=== PATIENT | female | born 1960 | race Caucasian/White ===

== ENCOUNTER 2017-06-12 10:55 | Emergency (ER) | payer MEDICARE ==
[2017-06-12] MEDS ORDERED: Sodium Chloride 0.9% 10 ML Syringe FLUSH PRN (11:29)
[2017-06-12] MEDS ORDERED: Pantoprazole 80 MG in Sodium Chloride 0.9% 100 ML IV ONE (11:40)
--- NOTE | 2017-06-12 11:44 | EDM.PDOC ---
ED HPI GENERAL MEDICAL PROBLEM - General Chief Complaint: Gastrointestinal Problem Stated Complaint: [facility] Time Seen by Provider: 06/12/17 11:32 Source of Information: Reports: Long Term Records History Limitations: Reports: Altered Mental Status - History of Present Illness INITIAL COMMENTS - FREE TEXT/NARRATIVE: Patient is a 56-year-old female with a history of end-stage liver disease who presents ED with complaints of nausea/vomiting, abdominal pain, and increased confusion. Patient resides at a local [facility]. Per staff patient's confusion has been increasing thus prompting evaluation in ED. Per nursing staff patient's had no recent fall. She is full CODE STATUS. Per nursing notes patient has a history of CVA, depression, kidney disease, iron deficiency, type 2 diabetes, COPD, anxiety, he will please unknown site, hypertension, weakness, and edema. - Related Data Allergies Allergy/AdvReac Type Severity Reaction Status Date / Time doxycycline Allergy Cannot Verified 06/12/17 11:12 Remember levofloxacin Allergy Cannot Verified 06/12/17 11:12 Remember morphine Allergy Cannot Verified 06/12/17 11:12 Remember spironolactone Allergy Cannot Verified 06/12/17 11:12 Remember Home Meds: Home Meds Aspirin [Ecotrin] 81 mg PO DAILY 06/12/17 [History] Carvedilol 3.125 mg PO BID 06/12/17 [History] Ipratropium/Albuterol Sulfate [Iprat-Albut 0.5-3(2.5) MG/3 ML] 3 ml INH DAILY PRN 06/12/17 [History] LORazepam [Ativan] 0.5 mg PO DAILY 06/12/17 [History] aMILoride [Midamor] 15 mg PO DAILY 06/12/17 [History] ED ROS GENERAL - Review of Systems Review Of Systems: Unable To Obtain - Physical Exam Exam: See Below Exam Limited By: Altered Mental Status General Appearance: Alert, Lethargic, Mild Distress Eye Exam: Bilateral Eye: EOMI, Normal Inspection, PERRL Nose: Normal Inspection Throat/Mouth: Normal Oropharynx, No Airway Compromise Head Exam: Atraumatic, Normocephalic Neck: Normal Inspection Respiratory/Chest: No Respiratory Distress, Lungs Clear, Normal Breath Sounds, Chest Non-Tender Cardiovascular: Normal Peripheral Pulses, No Murmur (Obvious), Tachycardia GI/Abdominal: Soft, Distended, Tender (Throughout with palpation), Other ( positive fluid wave. ) Neuro Exam (Abbreviated): Alert, CN II-XII Intact, Confused, Slow to Respond. No: Oriented, Normal Cognition Extremities: Normal Inspection, Non-Tender, No Pedal Edema, Normal Capillary Refill Skin Exam: Warm, Dry, Intact. No: Normal Color (pale) Course - Vital Signs Last Recorded V/S: Last Vital Signs Temp 96.9 F 06/12/17 15:10 Pulse 110 H 06/12/17 15:10 Resp 24 H 06/12/17 15:10 BP 93/55 L 06/12/17 15:10 Pulse Ox 100 06/12/17 15:10 - Orders/Labs/Meds Orders: Active Orders 24 hr Category Date Time Status EKG Documentation Completion [RC] STAT Care 06/12/17 11:29 Active Peripheral IV Care [RC] . DIRECTED Care 06/12/17 11:30 Active CULTURE BLOOD [BC] Stat Lab 06/12/17 11:55 Received CULTURE BLOOD [BC] Stat Lab 06/12/17 12:10 Received Blood Culture x2 Reflex Set [OM.PC] Stat Ot 06/12/17 11:35 Ordered Peripheral IV Insertion Adult [OM.PC] Stat Oth 06/12/17 11:29 Ordered Peripheral IV Insertion Adult [OM.PC] Stat Ot 06/12/17 11:30 Ordered Transfuse Red Blood Cells [COMM] Stat Ot 06/12/17 12:09 Ordered Labs: Laboratory Tests 06/12/17 06/12/17 06/12/17 Range/Units 11:05 11:08 11:35 WBC (3.98-10.04) K/mm3 RBC (3.98-5.22) M/mm3 Hgb (11.2-15.7) gm/L Hct (34.1-44.9) % MCV (79.4-94.8) fl MCH (25.6-32.2) pg MCHC (32.2-35.5) g/dl RDW Std Deviation (36.4-46.3) fL Plt Count (182-369) K/mm3 MPV (9.4-12.3) fl Neut % (Auto) (34.0-71.1) % Lymph % (Auto) (19.3-51.7) % [place] % (Auto) (4.7-12.5) % Eos % (Auto) (0.7-5.8) Baso % (Auto) (0.1-1.2) % Neut # (Auto) (1.56-6.13) K/mm3 Lymph # (Auto) (1.18-3.74) K/mm3 [place] # (Auto) (0.24-0.36) K/mm3 Eos # (Auto) (0.04-0.36) K/mm3 Baso # (Auto) (0.01-0.08) K/mm3 Manual Slide Review PT (8.0-13.0) SECONDS INR APTT (22-36) SECONDS Sodium (136-145) mEq/L Potassium (3.5-5.1) mEq/L Chloride (98-107) mEq/L Carbon Dioxide (21-32) mEq/L Anion Gap (5-15) BUN (7-18) mg/dL Creatinine (0.55-1.02) mg/dL Est Cr Clr Drug Dosing Estimated GFR (MDRD) (>60) mL/min BUN/Creatinine Ratio (14-18) Glucose (74-106) mg/dL Lactic Acid (0.4-2.0) mmol/L Calcium (8.5-10.1) mg/dL Total Bilirubin (0.2-1.0) mg/dL AST (15-37) U/L ALT (14-59) U/L Alkaline Phosphatase (46-116) U/L Ammonia (11-32) umol/L Troponin I (0.00-0.056) ng/mL C-Reactive Protein (<1.0) mg/dL Total Protein (6.4-8.2) g/dl Albumin (3.4-5.0) g/dl Globulin gm/dL Albumin/Globulin Ratio (1-2) Lipase (73-393) U/L TSH 3rd Generation (0.358-3.74) uIU/mL Urine Color Yellow (Yellow) Urine Appearance Clear (Clear) Urine pH 6.0 (5.0-8.0) Ur Specific [place] 1.015 (1.005-1.030) Urine Protein Negative (Negative) Urine Glucose (UA) Negative (Negative) Urine Ketones Negative (Negative) Urine Occult Blood Negative (Negative) Urine Nitrite Negative (Negative) Urine Bilirubin Negative (Negative) Urine Urobilinogen 1.0 (0.2-1.0) Ur Leukocyte Esterase Negative (Negative) Urine RBC Not seen (0-5) /hpf Urine WBC 0-5 (0-5) /hpf Ur Epithelial Cells 0-5 (0-5) /hpf Urine Bacteria Few (FEW) /hpf Urine Mucus Not seen (FEW) /hpf Urine Opiates Screen Negative (NEGATIVE) Ur Buprenorphine Scrn Negative (NEGATIVE) Ur Oxycodone Screen Negative (NEGATIVE) Urine Methadone Screen Negative (NEGATIVE) Ur Propoxyphene Screen Negative (NEGATIVE) Ur Barbiturates Screen Negative (NEGATIVE) Ur Tricyclics Screen Negative (NEGATIVE) Ur Phencyclidine Scrn Negative (NEGATIVE) Ur Amphetamine Screen Negative (NEGATIVE) U Methamphetamines Scrn Negative (NEGATIVE) U Benzodiazepines Scrn Presumptive positive H (NEGATIVE) U Cocaine Metab Screen Negative (NEGATIVE) U Marijuana (THC) Screen Negative (NEGATIVE) Blood Type B POSITIVE Gel Antibody Screen Negative Crossmatch See Detail 06/12/17 06/12/17 06/12/17 Range/Units 11:55 11:55 11:55 WBC 13.84 H (3.98-10.04) K/mm3 RBC 1.51 L (3.98-5.22) M/mm3 Hgb 4.1 L* (11.2-15.7) gm/L Hct 15.0 L (34.1-44.9) % MCV 99.3 H (79.4-94.8) fl MCH 27.2 (25.6-32.2) pg MCHC 27.3 L (32.2-35.5) g/dl RDW Std Deviation 59.8 H (36.4-46.3) fL Plt Count 360 (182-369) K/mm3 MPV 10.5 (9.4-12.3) fl Neut % (Auto) 79.9 H (34.0-71.1) % Lymph % (Auto) 11.7 L (19.3-51.7) % [place] % (Auto) 7.2 (4.7-12.5) % Eos % (Auto) 0.4 L (0.7-5.8) Baso % (Auto) 0.6 (0.1-1.2) % Neut # (Auto) 11.05 H (1.56-6.13) K/mm3 Lymph # (Auto) 1.62 (1.18-3.74) K/mm3 [place] # (Auto) 1.00 H (0.24-0.36) K/mm3 Eos # (Auto) 0.06 (0.04-0.36) K/mm3 Baso # (Auto) 0.08 (0.01-0.08) K/mm3 Manual Slide Review Abnormal smear PT 13.0 (8.0-13.0) SECONDS INR 1.18 APTT (22-36) SECONDS Sodium 140 (136-145) mEq/L Potassium 4.1 (3.5-5.1) mEq/L Chloride 102 (98-107) mEq/L Carbon Dioxide 31 (21-32) mEq/L Anion Gap 11.1 (5-15) BUN 38 H (7-18) mg/dL Creatinine 1.4 H (0.55-1.02) mg/dL Est Cr Clr Drug Dosing TNP Estimated GFR (MDRD) 39 (>60) mL/min BUN/Creatinine Ratio 27.1 H (14-18) Glucose 150 H (74-106) mg/dL Lactic Acid (0.4-2.0) mmol/L Calcium 8.7 (8.5-10.1) mg/dL Total Bilirubin 0.5 (0.2-1.0) mg/dL AST 38 H (15-37) U/L ALT 30 (14-59) U/L Alkaline Phosphatase 88 (46-116) U/L Ammonia (11-32) umol/L Troponin I (0.00-0.056) ng/mL C-Reactive Protein 1.0 (<1.0) mg/dL Total Protein 5.9 L (6.4-8.2) g/dl Albumin 2.1 L (3.4-5.0) g/dl Globulin 3.8 gm/dL Albumin/Globulin Ratio 0.6 L (1-2) Lipase 320 (73-393) U/L TSH 3rd Generation 2.894 (0.358-3.74) uIU/mL Urine Color (Yellow) Urine Appearance (Clear) Urine pH (5.0-8.0) Ur Specific [place] (1.005-1.030) Urine Protein (Negative) Urine Glucose (UA) (Negative) Urine Ketones (Negative) Urine Occult Blood (Negative) Urine Nitrite (Negative) Urine Bilirubin (Negative) Urine Urobilinogen (0.2-1.0) Ur Leukocyte Esterase (Negative) Urine RBC (0-5) /hpf Urine WBC (0-5) /hpf Ur Epithelial Cells (0-5) /hpf Urine Bacteria (FEW) /hpf Urine Mucus (FEW) /hpf Urine Opiates Screen (NEGATIVE) Ur Buprenorphine Scrn (NEGATIVE) Ur Oxycodone Screen (NEGATIVE) Urine Methadone Screen (NEGATIVE) Ur Propoxyphene Screen (NEGATIVE) Ur Barbiturates Screen (NEGATIVE) Ur Tricyclics Screen (NEGATIVE) Ur Phencyclidine Scrn (NEGATIVE) Ur Amphetamine Screen (NEGATIVE) U Methamphetamines Scrn (NEGATIVE) U Benzodiazepines Scrn (NEGATIVE) U Cocaine Metab Screen (NEGATIVE) U Marijuana (THC) Screen (NEGATIVE) Blood Type Gel Antibody Screen Crossmatch 06/12/17 06/12/17 06/12/17 Range/Units 11:55 11:55 12:10 WBC (3.98-10.04) K/mm3 RBC (3.98-5.22) M/mm3 Hgb (11.2-15.7) gm/L Hct (34.1-44.9) % MCV (79.4-94.8) fl MCH (25.6-32.2) pg MCHC (32.2-35.5) g/dl RDW Std Deviation (36.4-46.3) fL Plt Count (182-369) K/mm3 MPV (9.4-12.3) fl Neut % (Auto) (34.0-71.1) % Lymph % (Auto) (19.3-51.7) % [place] % (Auto) (4.7-12.5) % Eos % (Auto) (0.7-5.8) Baso % (Auto) (0.1-1.2) % Neut # (Auto) (1.56-6.13) K/mm3 Lymph # (Auto) (1.18-3.74) K/mm3 [place] # (Auto) (0.24-0.36) K/mm3 Eos # (Auto) (0.04-0.36) K/mm3 Baso # (Auto) (0.01-0.08) K/mm3 Manual Slide Review PT (8.0-13.0) SECONDS INR APTT 23 (22-36) SECONDS Sodium (136-145) mEq/L Potassium (3.5-5.1) mEq/L Chloride (98-107) mEq/L Carbon Dioxide (21-32) mEq/L Anion Gap (5-15) BUN (7-18) mg/dL Creatinine (0.55-1.02) mg/dL Est Cr Clr Drug Dosing Estimated GFR (MDRD) (>60) mL/min BUN/Creatinine Ratio (14-18) Glucose (74-106) mg/dL Lactic Acid (0.4-2.0) mmol/L Calcium (8.5-10.1) mg/dL Total Bilirubin (0.2-1.0) mg/dL AST (15-37) U/L ALT (14-59) U/L Alkaline Phosphatase (46-116) U/L Ammonia 157 H (11-32) umol/L Troponin I < 0.017 (0.00-0.056) ng/mL C-Reactive Protein (<1.0) mg/dL Total Protein (6.4-8.2) g/dl Albumin (3.4-5.0) g/dl Globulin gm/dL Albumin/Globulin Ratio (1-2) Lipase (73-393) U/L TSH 3rd Generation (0.358-3.74) uIU/mL Urine Color (Yellow) Urine Appearance (Clear) Urine pH (5.0-8.0) Ur Specific [place] (1.005-1.030) Urine Protein (Negative) Urine Glucose (UA) (Negative) Urine Ketones (Negative) Urine Occult Blood (Negative) Urine Nitrite (Negative) Urine Bilirubin (Negative) Urine Urobilinogen (0.2-1.0) Ur Leukocyte Esterase (Negative) Urine RBC (0-5) /hpf Urine WBC (0-5) /hpf Ur Epithelial Cells (0-5) /hpf Urine Bacteria (FEW) /hpf Urine Mucus (FEW) /hpf Urine Opiates Screen (NEGATIVE) Ur Buprenorphine Scrn (NEGATIVE) Ur Oxycodone Screen (NEGATIVE) Urine Methadone Screen (NEGATIVE) Ur Propoxyphene Screen (NEGATIVE) Ur Barbiturates Screen (NEGATIVE) Ur Tricyclics Screen (NEGATIVE) Ur Phencyclidine Scrn (NEGATIVE) Ur Amphetamine Screen (NEGATIVE) U Methamphetamines Scrn (NEGATIVE) U Benzodiazepines Scrn (NEGATIVE) U Cocaine Metab Screen (NEGATIVE) U Marijuana (THC) Screen (NEGATIVE) Blood Type Gel Antibody Screen Crossmatch 06/12/17 Range/Units 12:10 WBC (3.98-10.04) K/mm3 RBC (3.98-5.22) M/mm3 Hgb (11.2-15.7) gm/L Hct (34.1-44.9) % MCV (79.4-94.8) fl MCH (25.6-32.2) pg MCHC (32.2-35.5) g/dl RDW Std Deviation (36.4-46.3) fL Plt Count (182-369) K/mm3 MPV (9.4-12.3) fl Neut % (Auto) (34.0-71.1) % Lymph % (Auto) (19.3-51.7) % [place] % (Auto) (4.7-12.5) % Eos % (Auto) (0.7-5.8) Baso % (Auto) (0.1-1.2) % Neut # (Auto) (1.56-6.13) K/mm3 Lymph # (Auto) (1.18-3.74) K/mm3 [place] # (Auto) (0.24-0.36) K/mm3 Eos # (Auto) (0.04-0.36) K/mm3 Baso # (Auto) (0.01-0.08) K/mm3 Manual Slide Review PT (8.0-13.0) SECONDS INR APTT (22-36) SECONDS Sodium (136-145) mEq/L Potassium (3.5-5.1) mEq/L Chloride (98-107) mEq/L Carbon Dioxide (21-32) mEq/L Anion Gap (5-15) BUN (7-18) mg/dL Creatinine (0.55-1.02) mg/dL Est Cr Clr Drug Dosing Estimated GFR (MDRD) (>60) mL/min BUN/Creatinine Ratio (14-18) Glucose (74-106) mg/dL Lactic Acid 3.5 H (0.4-2.0) mmol/L Calcium (8.5-10.1) mg/dL Total Bilirubin (0.2-1.0) mg/dL AST (15-37) U/L ALT (14-59) U/L Alkaline Phosphatase (46-116) U/L Ammonia (11-32) umol/L Troponin I (0.00-0.056) ng/mL C-Reactive Protein (<1.0) mg/dL Total Protein (6.4-8.2) g/dl Albumin (3.4-5.0) g/dl Globulin gm/dL Albumin/Globulin Ratio (1-2) Lipase (73-393) U/L TSH 3rd Generation (0.358-3.74) uIU/mL Urine Color (Yellow) Urine Appearance (Clear) Urine pH (5.0-8.0) Ur Specific [place] (1.005-1.030) Urine Protein (Negative) Urine Glucose (UA) (Negative) Urine Ketones (Negative) Urine Occult Blood (Negative) Urine Nitrite (Negative) Urine Bilirubin (Negative) Urine Urobilinogen (0.2-1.0) Ur Leukocyte Esterase (Negative) Urine RBC (0-5) /hpf Urine WBC (0-5) /hpf Ur Epithelial Cells (0-5) /hpf Urine Bacteria (FEW) /hpf Urine Mucus (FEW) /hpf Urine Opiates Screen (NEGATIVE) Ur Buprenorphine Scrn (NEGATIVE) Ur Oxycodone Screen (NEGATIVE) Urine Methadone Screen (NEGATIVE) Ur Propoxyphene Screen (NEGATIVE) Ur Barbiturates Screen (NEGATIVE) Ur Tricyclics Screen (NEGATIVE) Ur Phencyclidine Scrn (NEGATIVE) Ur Amphetamine Screen (NEGATIVE) U Methamphetamines Scrn (NEGATIVE) U Benzodiazepines Scrn (NEGATIVE) U Cocaine Metab Screen (NEGATIVE) U Marijuana (THC) Screen (NEGATIVE) Blood Type Gel Antibody Screen Crossmatch Meds: Medications Discontinued Medications Generic Name Dose Route Start Last Admin Trade Name Freq PRN Reason Stop Dose Admin Pantoprazole Sodium 80 mg/ 100 mls @ 10 mls/hr 06/12/17 11:40 06/12/17 12:44 Sodium Chloride IV 06/12/17 21:39 8 mg/hr ONETIME ONE 10 mls/hr 8 MG/HR Administration Sodium Chloride Confirm 06/12/17 13:25 06/12/17 14:04 Normal Saline Administered 06/12/17 13:26 Not Given Dose 250 mls @ as directed .ROUTE .STK-MED ONE Piperacillin Sod/Tazobactam 100 mls @ 200 mls/hr 06/12/17 13:49 06/12/17 14: 28 Sod 3.375 gm/ Sodium Chloride IV 06/12/17 14:18 200 mls/hr ONETIME ONE Administration Lorazepam 0.25 mg 06/12/17 11:56 06/12/17 12:03 Ativan IVPUSH 06/12/17 11:57 0.25 mg ONETIME ONE Administration Octreotide Acetate 50 mcg 06/12/17 13:44 06/12/17 14:31 Sandostatin SUBCUT 06/12/17 13:45 50 mcg ONETIME ONE Administration Ondansetron HCl 4 mg 06/12/17 11:46 06/12/17 11:59 Zofran IVPUSH 06/12/17 11:47 4 mg ONETIME ONE Administration Sodium Chloride 10 ml 06/12/17 11:29 06/12/17 11:59 Saline Flush FLUSH 10 ml ASDIRECTED PRN Administration Keep Vein Open - Re-Assessments/Exams Free Text/Narrative Re-Assessment/Exam: IV established. Initial labs and studies include: EKG, CBC, chem 14, blood cultures 2, coag studies, CRP, lactic acid, lipase, troponin, Type and screen, TSH, UA, and ammonia level. Also ordered a chest x-ray with abdominal series. Head CT without contrast. Per nursing staff patient stool was positive for blood. IV Protonix ordered. Zofran ordered. Rapid bedside glucose ordered as well. EKG revealed: Sinus tachycardia at a rate of 113. Q waves in leads 2, 3, and aVF. Left atrial hypertrophy. Decreased voltage precordial leads. 06/12/17 11:[address] Vásquez. He did see the patient as well suggested low dose ativan0.25mgIVP to settle her down. Agrees with plan. 06/12/17 12:10 HGB read back at 4.1. Ordered two PRBCS to be transfused. Once labs completed will arrange transport to [place]. Chest x-ray revealed: No acute findings noted. Reviewed with Dr. Vásquez. Final interpretation pending. Abdominal x-rays reveal:No acute findings noted. Reviewed with Dr. Vásquez. Final interpretation pending. Head CT revealed: No acute findings noted. Reviewed with Dr. Vásquez. Final interpretation pending. Labs reviewed: White blood cell count 13.84, hemoglobin 4.1, platelet count 360 , INR 1.18, creatinine 1.4, glucose 150, lactic acid 3.5, ammonia level is 157, lipase 320, TSH 2.894, UA negative for infection. Troponin WNL. Urine drug tox not ordered in error. Ordered and pending. 1314 Called [facility] one call they will call back. Patients PCP is Dr. Ferreira. Unable to get ahold of family for transfer requests in relation to hospital. 06/12/17 13:48 [facility] has called back[address] Dr. Huizar requested zosyn and octreotide. Ordered 50mcq SQ x1 and zosyn 3.375 IV. Inaddition the accepting ED provider Dr. De Paz requested lactulose. WE have discussed starting this prior to contacting [facility]. Patient is unable to safely drink lactulose. I do not believe she would take it via enema. Spoke with Dr. Vásquez and he agrees with plan. They will have to place NG tube in [place] and provide it that way. Amulance has been notified. 06/12/17 14:08 Urine drug tox positive for benzo's. Spoke with Dr. De Paz directly. Advised patient is unable to swallow lactulose and do not believe she would tolerate retention enema. Contacted pharmacy and they do not have rectal lactulose. Thus patient will be transported via ambulance without. All transfer paperwork completed. Departure - Departure Time of Disposition: 13:14 Disposition: DC/Tfer to [facility] 02 Condition: Poor Clinical Impression: Hepatic encephalopathy GI (gastrointestinal bleed) Qualifiers: GI bleed type/associated pathology: unspecified gastrointestinal hemorrhage type Qualified Code(s): K92.2 - Gastrointestinal hemorrhage, unspecified Cirrhosis of liver Qualifiers: Hepatic cirrhosis type: alcoholic cirrhosis Ascites presence: with ascites Qualified Code(s): K70.31 - Alcoholic cirrhosis of liver with ascites Anemia Qualifiers: Anemia type: unspecified type Qualified Code(s): D64.9 - Anemia, unspecified - Discharge Information Referrals: Leonard Pettit MD [Primary Care Provider] - Forms: ED Department Discharge - My Orders Last 24 Hours: My Active Orders 06/12/17 11:29 EKG Documentation Completion [RC] STAT Peripheral IV Insertion Adult [OM.PC] Stat 06/12/17 11:30 Peripheral IV Care [RC] . DIRECTED Peripheral IV Insertion Adult [OM.PC] Stat 06/12/17 11:35 Blood Culture x2 Reflex Set [OM.PC] Stat 06/12/17 11:55 CULTURE BLOOD [BC] Stat 06/12/17 12:09 Transfuse Red Blood Cells [COMM] Stat 06/12/17 12:10 CULTURE BLOOD [BC] Stat - Assessment/Plan Last 24 Hours: My Active Orders 06/12/17 11:29 EKG Documentation Completion [RC] STAT Peripheral IV Insertion Adult [OM.PC] Stat 06/12/17 11:30 Peripheral IV Care [RC] . DIRECTED Peripheral IV Insertion Adult [OM.PC] Stat 06/12/17 11:35 Blood Culture x2 Reflex Set [OM.PC] Stat 06/12/17 11:55 CULTURE BLOOD [BC] Stat 06/12/17 12:09 Transfuse Red Blood Cells [COMM] Stat 06/12/17 12:10 CULTURE BLOOD [BC] Stat
[2017-06-12] MEDS ORDERED: Ondansetron 4 MG/2 ML SDV IVPUSH ONE (11:46)
[2017-06-12] MEDS ORDERED: LORazepam 2 MG/ML MDV IVPUSH ONE (11:56)
--- NOTE | 2017-06-12 12:58 | CT ---
Head CT Technique: Multiple axial sections through the brain were obtained. Intravenous contrast was not utilized. Comparison: No prior studies available. Findings: Low density is noted within the at the left parietal-occipital junction. This is felt compatible with an old infarct. Several areas of slight increased density is noted within the cortex in this region which may represent minimal amount of cortical blood versus small cortical calcifications. Ventricles along with basal cisterns and sulci over the convexities are moderately prominent. No other abnormal parenchymal densities are seen. No other findings of intracranial hemorrhage. No midline shift is seen. Bone window settings were reviewed which shows no acute calvarial abnormality. Visualized sinuses are clear. Impression: 1. Generalized atrophy. 2. Findings felt compatible with old infarct at the left parietal-occipital junction. 3. Several minimal areas of increased density within the cortex in the area of the previous infarct either due to very minimal cortical hemorrhage or calcification. 4. Nothing acute is otherwise seen on noncontrast head CT study. Diagnostic code #3
[2017-06-12] MEDS ORDERED: Sodium Chloride 0.9% 250 ML ONE (13:25)
[2017-06-12] MEDS ORDERED: Octreotide 50 MCG/1 ML Amp SUBCUT ONE (13:44)
[2017-06-12] MEDS ORDERED: Piperacillin/Tazobactam 3.375 GM in Sodium Chloride 0.9% 100 ML IV ONE (13:49)
--- NOTE | 2017-06-12 14:44 | CR ---
Abdominal series: Supine view of the chest is obtained as well as supine view of the abdomen and decubitus views of the abdomen. Comparison: No previous study. Heart size and mediastinum are within normal limits for supine technique. Lungs are clear. Surgical clips are seen within the left neck. Bowel gas pattern appears normal. Vascular calcification is seen. No free air is identified on the decubitus views. Impression: 1. Incidental findings. Nothing acute is seen on abdominal series. Diagnostic code #2
== END 2017-06-12 15:10 ==
LOC: JD.ED 10:55
DX: K70.31 Alcoholic cirrhosis of liver with ascites (principal); K72.90 Hepatic failure, unspecified without coma; K92.2 Gastrointestinal hemorrhage, unspecified; D64.9 Anemia, unspecified; Z88.1 Allergy status to other antibiotic agents; Z88.5 Allergy status to narcotic agent; Z88.8 Allergy status to other drugs, medicaments and biological substances; Z79.82 Long term (current) use of aspirin; Z79.899 Other long term (current) drug therapy
CPT/HCPCS: 36415; 70450; 74022; 80053; 80306; 81001; 82140; 83605; 83690; 84443; 84484; 85025; 85610; 85730; 86140; 86850; 86900; 86901; 86922; 87040; 93005; 96365; 96366; 96368; 96372; 96375; 99285; C9113; J2060; J2354; J2405; J2543; J7030; J7050; P9016; P9612

== ENCOUNTER 2017-08-05 06:52 | Emergency (ER) | payer MEDICAID ==
--- NOTE | 2017-08-05 07:28 | EDM.PDOC ---
ED HPI GENERAL MEDICAL PROBLEM - General Chief Complaint: ENT Problem Stated Complaint: [facility] Time Seen by Provider: 08/05/17 07:05 Source of Information: Reports: Patient, Jail Records History Limitations: Reports: No Limitations - History of Present Illness INITIAL COMMENTS - FREE TEXT/NARRATIVE: Medical records from the alf indicate that the patient called out that she had a right-sided nosebleed at 03:29 this morning. The bleeding stopped after the patient's nostril was packed with gauze and pressure was applied for 15 minutes. The right nostril apparently began bleeding again sometime later - the patient is not able to tell me when. It had stopped by the time the patient arrived at the ED. The patient's states that it stopped with gauze packing alone , without pressure. I'm told that the patient spit out a sizable blood clot after arrival to the ED. She states that she gets nosebleeds sometimes when the air is very dry. She states that she has a humidifier in her room, but she does not apply petroleum jelly to her nostrils. She denies recent nasal trauma. The patient's PCP is Dr. Pettit. - Related Data Allergies Allergy/AdvReac Type Severity Reaction Status Date / Time doxycycline Allergy Cannot Verified 08/05/17 07:02 Remember levofloxacin Allergy Cannot Verified 08/05/17 07:02 Remember morphine Allergy Cannot Verified 08/05/17 07:02 Remember spironolactone Allergy Cannot Verified 08/05/17 07:02 Remember Home Meds: Home Meds Aspirin [Ecotrin] 81 mg PO DAILY 06/12/17 [History] Carvedilol 3.125 mg PO BID 06/12/17 [History] Ipratropium/Albuterol Sulfate [Iprat-Albut 0.5-3(2.5) MG/3 ML] 3 ml INH DAILY PRN 06/12/17 [History] LORazepam [Ativan] 0.5 mg PO DAILY 06/12/17 [History] aMILoride [Midamor] 15 mg PO DAILY 06/12/17 [History] Past Medical History HEENT History: Reports: Allergic Rhinitis Cardiovascular History: Reports: Hypertension Respiratory History: Reports: COPD Gastrointestinal History: Reports: Cirrhosis (alcoholic) Genitourinary History: Reports: Chronic Renal Insuffiency Neurological History: Reports: CVA (with resulting right hemiparesis) Psychiatric History: Reports: Anxiety, Depression Endocrine/Metabolic History: Reports: Diabetes, Type II Hematologic History: Reports: Anemia, Iron Deficiency - Past Surgical History Cardiovascular Surgical History: Reports: Carotid Endarterectomy (left) Social & Family History - Tobacco Use Smoking Status *Q: Never Smoker - Caffeine Use Caffeine Use: Reports: None - Alcohol Use Alcohol Use History: Yes - Recreational Drug Use Recreational Drug Use: No - Living Situation & Occupation Living situation: Reports: Extended Care Facility Occupation: Disabled ED ROS ENT - Review of Systems Review Of Systems: ROS reveals no pertinent complaints other than HPI. ED EXAM, ENT - Physical Exam Exam: See Below Exam Limited By: No Limitations General Appearance: Alert, WD/WN, No Apparent Distress Eye Exam: Bilateral Eye: Normal Inspection Ears: Normal External Exam, Hearing Grossly Normal Nose: Other (Left nostril normal. Some dried blood to the interior of the right nostril, but no source visible vessel seen.) Mouth/Throat: Normal Inspection, Normal Gums, Normal Lips, Normal Teeth, Other ( Some streaks of older blood in the posterior oropharynx. No active bleeding.) Head: Atraumatic, Normocephalic Course - Vital Signs Last Recorded V/S: Last Vital Signs Temp 37.1 C 08/05/17 06:59 Pulse 117 H 08/05/17 06:59 Resp 18 08/05/17 06:59 BP 140/86 08/05/17 06:59 Pulse Ox 93 L 08/05/17 06:59 - Re-Assessments/Exams Free Text/Narrative Re-Assessment/Exam: 08/05/17 07:21 While there is some dried blood in the right nostril, I do not see a visible vessel to potentially cauterize. Additionally, the epistaxis appears to be associated with dry air. I am therefore recommending that we apply a thin smear of petroleum jelly to reduce likelihood of rebleed, only. Departure - Departure Time of Disposition: 07:23 Disposition: Home, Self-Care 01 Condition: Good Clinical Impression: Right-sided epistaxis - Discharge Information Referrals: Leonard Pettit MD [Physician] - Additional Instructions: You were seen in the emergency room for 2 episodes of right-sided nosebleed. When seen in the ER, the bleeding had already stopped. No visible vessel to potentially cauterize was seen. Because the nose bleed was likely related to dry air, we are recommending that you apply a thin smear of petroleum jelly to each nostril at least once a day. If any other problems, please do not hesitate to return to the ER.
[2017-08-05] MEDS ORDERED: Insulin Aspart 100 Units/ML 3 ML Pen SUBCUT STA (08:39)
== END 2017-08-05 08:56 | disposition home or self-care (01) ==
LOC: JD.ED 06:52
DX: R04.0 Epistaxis (principal); J44.9 Chronic obstructive pulmonary disease, unspecified; I12.9 Hypertensive chronic kidney disease with stage 1 through stage 4 chronic kidney disease, or unspecified chronic kidney disease; N18.9 Chronic kidney disease, unspecified; F41.9 Anxiety disorder, unspecified; F32.9 Major depressive disorder, single episode, unspecified; E11.22 Type 2 diabetes mellitus with diabetic chronic kidney disease; Z88.8 Allergy status to other drugs, medicaments and biological substances; Z88.5 Allergy status to narcotic agent; Z88.1 Allergy status to other antibiotic agents; Z79.82 Long term (current) use of aspirin; Z79.899 Other long term (current) drug therapy; Z86.73 Personal history of transient ischemic attack (TIA), and cerebral infarction without residual deficits; D50.9 Iron deficiency anemia, unspecified
CPT/HCPCS: 82962; 96372; 99285; J1815; 99282